=== PATIENT | female | born 1990 | race Caucasian/White ===

== ENCOUNTER 2016-06-14 15:51 | Emergency (ER) | payer BC ==
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
[2016-06-14 17:15] LABS: CHLORIDE,CL 110 mmol/L (98-110); SODIUM,NA 142 mmol/L (136-146)
[2016-06-14 17:34] LABS: ACETAMINOPHEN 8.5 ug/mL
[2016-06-14 18:22] VITALS: BP 115/69
== END 2016-06-14 18:15 ==
LOC: MW.ED 15:51
DX: F33.9 Major depressive disorder, recurrent, unspecified (principal); F41.0 Panic disorder [episodic paroxysmal anxiety]; F17.200 Nicotine dependence, unspecified, uncomplicated; Z79.899 Other long term (current) drug therapy; Z87.820 Personal history of traumatic brain injury
CPT/HCPCS: 80053; 80305; 81001; 83735; 84443; 84481; 85025; 93005; 99285; G0480; 36415; 99284